=== PATIENT | female | born 1975 | race Caucasian/White ===

== ENCOUNTER 2018-03-19 10:34 | Outpatient (CLI) | payer OTHER ==
--- NOTE | 2018-03-19 11:19 | MMO ---
BILATERAL MAMMOGRAMS: DATE: 03/19/18 HISTORY: Screening mammography. COMPARISON: Multiple exams back to 01/25/14. FINDINGS: Heterogeneously dense fibroglandular tissue. No dominant mass or suspicious calcifications. The study was evaluated with the assistance of computer-aided detection. IMPRESSION: BIRADS 1: Negative Suggest routine follow-up. POS: [facility]
== END 2018-03-19 10:35 | disposition home or self-care (01) ==
LOC: SCSMAMMO 10:34
PROVIDERS: ATTEND Family Medicine
DX: Z12.31 Encounter for screening mammogram for malignant neoplasm of breast (principal)
CPT/HCPCS: 77067

== ENCOUNTER 2020-11-27 11:45 | Emergency (ER) | payer OTHER ==
[2020-11-27 12:30] LABS: Bilirubin Negative (Negative); Blood, Urine Negative (Negative); Clarity Clear (Clear); Glucose, Urine (Dipstick) Normal (Negative); Ketone, Urine Negative (Negative); Leukocyte Negative Leu/uL (Negative); Nitrite Negative (Negative); Protein, Urine (Dipstick) Negative (Neg-Trace); Specific Gravity, Urine 1.012 (1.002-1.036); Urobilinogen Normal mg/dL (Less than 2); pH, Urine 5.5 (5.0-9.0)
== END 2020-11-27 13:10 | disposition home or self-care (01) ==
LOC: ERS 11:45
DX: R33.9 Retention of urine, unspecified (principal); F17.210 Nicotine dependence, cigarettes, uncomplicated
CPT/HCPCS: 51702; 81003; 87086